=== PATIENT | female | born 1995 | race Two or more races ===

== ENCOUNTER 2020-12-24 05:10 | Inpatient (IN) | payer BC ==
[~2020-12-24] VITALS: Ht 157.5 cm; Wt 82.3 kg
[2020-12-24] MEDS ORDERED: TERBUTALINE 1 MG/ML, 1ML SQ PRN (05:30)
[2020-12-24] MEDS ORDERED: LACTATED RINGERS 1,000 ML IV SCH ×2 (05:30→09:30)
[2020-12-24] MEDS ORDERED: D5%-LACTATED RINGERS 1,000 ML IV SCH (05:30)
[2020-12-24] MEDS ORDERED: TERBUTALINE 1 MG/ML, 1ML IVPush PRN (05:30)
[2020-12-24] MEDS ORDERED: ONDANSETRON 2MG/ML, 2ML IVPush PRN (05:30)
[2020-12-24] MEDS ORDERED: FENTANYL PF 100 MCG/2ML IV PRN (05:30)
[2020-12-24] MEDS ORDERED: FENTANYL PF 100 MCG/2ML IVPush PRN (05:30)
[2020-12-24] MEDS ORDERED: SODIUM CITRATE/CITRIC ACID 30 ML UDC PO PRN (05:30)
[2020-12-24] MEDS ORDERED: METOCLOPRAMIDE 5 MG/ML, 2ML IVPush PRN (05:30)
[2020-12-24] MEDS ORDERED: OXYTOCIN 30U/ 0.9% NaCL 500ML 500 ML IV ONE (05:30)
[2020-12-24] MEDS ORDERED: OXYTOCIN 30U/ 0.9% NaCL 500ML 500 ML IV PRN (05:30)
[2020-12-24] MEDS ORDERED: NEWBORN KIT ONE (06:05)
[2020-12-24 06:10] LABS: BASOPHILS % (AUTO) 1 % (0-1); EOSINOPHILS % (AUTO) 1 % (1-7); LYMPHOCYTES % (AUTO) 31 % (22-44); MEAN CORPUSCULAR HEMOGLOBIN 29.3 pg (27.0-34.8); MEAN CORPUSCULAR HGB CONC 34.2 g/dL (32.4-35.8); MEAN PLATELET VOLUME 10.8 fL (7.4-10.4); MONOCYTES % (AUTO) 10 % (2-9); NEUTROPHILS % (AUTO) 59 % (42-75); PLATELET COUNT 179 x10^3/uL (130-400); RED BLOOD COUNT 3.56 x10^6/uL (3.82-5.3); RED CELL DISTRIBUTION WIDTH 14.1 % (9.6-15.2)
[2020-12-24] MEDS ORDERED: NALOXONE 0.4 MG/ML, 1ML IVPush PRN (09:30)
[2020-12-24] MEDS ORDERED: EPHEDRINE 50 MG/ML, 1ML IVPush PRN (09:30)
[2020-12-24] MEDS ORDERED: LACTATED RINGERS 1,000 ML IVBOLUS PRN (09:30)
[2020-12-24] MEDS ORDERED: FENTANYL/BUPIV./NS/PF 250 ML EPIDCONT SCH (09:30)
[2020-12-24] MEDS ORDERED: MISOPROSTOL 200 MCG TABLET ONE (09:36)
[2020-12-24] MEDS ORDERED: LIDOCAINE 1%, 20ML ONE (09:36)
[2020-12-24] MEDS ORDERED: METHYLERGONOVINE 0.2 MG/ML IM PRN (10:00)
[2020-12-24] MEDS ORDERED: BISACODYL 10 MG SUPP PR PRN (10:00)
[2020-12-24] MEDS ORDERED: CALCIUM CARBONATE 500 MG TAB.CHEW PO PRN (10:00)
[2020-12-24] MEDS ORDERED: MAGNESIUM HYDROXIDE 8%, 30ML UDC PO PRN (10:00)
[2020-12-24] MEDS ORDERED: SIMETHICONE 80 MG CHEW TAB PO PRN (10:00)
[2020-12-24] MEDS ORDERED: OXYcodone/APAP 5/325MG TABLET PO PRN ×2 (10:00)
[2020-12-24] MEDS ORDERED: CARBOPROST TROMETHAMINE 250 MCG/ML, 1ML IM PRN (10:00)
[2020-12-24] MEDS ORDERED: GLYCERIN ADULT SUPP PR PRN (10:00)
[2020-12-24] MEDS: OXYTOCIN 30U/ 0.9% NaCL 500ML 500 ML IV SCH ×2 (10:00→20:00)
[2020-12-24] MEDS ORDERED: DIPH,PERTUSS(ACELL),TET VAC/PF NC IM-VACC PRN (10:00)
[2020-12-24] MEDS ORDERED: ACETAMINOPHEN 325 MG TABLET PO PRN ×3 (10:00)
[2020-12-24] MEDS ORDERED: MISOPROSTOL 200 MCG TABLET PR PRN (10:00)
[2020-12-24] MEDS ORDERED: DOCUSATE 100 MG CAPSULE PO PRN (10:00)
[2020-12-24] MEDS ORDERED: OXYcodone/APAP 5/325MG TABLET ONE (10:03)
[2020-12-24] MEDS ORDERED: IBUPROFEN 600 MG TABLET ONE (10:03)
[2020-12-24] MEDS: IBUPROFEN 600 MG TABLET PO PRN ×2 (10:09→23:22)
[2020-12-24] MEDS ORDERED: MISOPROSTOL 200 MCG TABLET PR ONE (10:30)
[2020-12-24 12:00] VITALS: BP 126/83
[2020-12-24 16:10] VITALS: BP 122/81
[2020-12-24 17:57] LABS: BASOPHILS % (AUTO) 0 % (0-1); EOSINOPHILS % (AUTO) 0 % (1-7); LYMPHOCYTES % (AUTO) 16 % (22-44); MEAN CORPUSCULAR HEMOGLOBIN 29.1 pg (27.0-34.8); MEAN CORPUSCULAR HGB CONC 33.8 g/dL (32.4-35.8); MEAN PLATELET VOLUME 11.2 fL (7.4-10.4); MONOCYTES % (AUTO) 6 % (2-9); NEUTROPHILS % (AUTO) 77 % (42-75); PLATELET COUNT 173 x10^3/uL (130-400); RED BLOOD COUNT 3.22 x10^6/uL (3.82-5.3); RED CELL DISTRIBUTION WIDTH 14.1 % (9.6-15.2)
[2020-12-24 20:03] VITALS: BP 124/74
[2020-12-25 00:20] VITALS: BP 110/70
[2020-12-25 04:30] VITALS: BP 121/70
[2020-12-25] MEDS: IBUPROFEN 600 MG TABLET PO PRN (04:55)
[2020-12-25] MEDS: OXYTOCIN 30U/ 0.9% NaCL 500ML 500 ML IV SCH (06:00)
[2020-12-25 08:02] VITALS: BP 122/80
[2020-12-25] MEDS ORDERED: PRENATAL VIT/IRON/FA 1 EACH TABLET PO SCH (09:00)
[2020-12-25] MEDS ORDERED: IBUP-1222 PO (10:47)
[2020-12-25] MEDS ORDERED: DOCU-131 PO (10:47)
[2020-12-25] MEDS ORDERED: FERR324T5 PO (10:48)
== END 2020-12-25 11:20 | disposition home or self-care (01) | DRG 807 ==
LOC: LDIP 05:10 → 2NW 11:50
PROVIDERS: ADMIT Obstetrics & Gynecology; ATTEND Obstetrics & Gynecology
PROC: 10E0XZZ Delivery of Products of Conception, External Approach (ICD-10-PCS; principal; 2020-12-24)
PROC: 0UQMXZZ Repair Vulva, External Approach (ICD-10-PCS; 2020-12-24)
PROC: 0UQKXZZ Repair Hymen, External Approach (ICD-10-PCS; 2020-12-24)
DX: O99.02 Anemia complicating childbirth (principal); Z37.0 Single live birth; Z20.822 Contact with and (suspected) exposure to COVID-19; D50.9 Iron deficiency anemia, unspecified; O70.0 First degree perineal laceration during delivery; Z3A.39 39 weeks gestation of pregnancy; Z86.16 Personal history of COVID-19
CPT/HCPCS: 36415; 85025; 86592; 86850; 86900; 87635; G0378; J2405; J3010; J2590